=== PATIENT | female | born 2000 | race Caucasian/White ===

== ENCOUNTER 2023-03-14 19:50 | Emergency (ER) | payer OTHER ==
[2023-03-14 20:01] VITALS: BP 105/62; PULSE 57; RESP 18; TEMP 98; BMI 22.6
[2023-03-14 20:37] LABS: HCG,QUALITATIVE URINE Positive
[2023-03-14 20:39] LABS: PH,URINE 5.5 (5.0-8.0); URINE APPEARANCE CLEAR; URINE BILIRUBIN NEGATIVE (NEGATIVE); URINE COLOR YELLOW; URINE GLUCOSE (UA) NEGATIVE (NEGATIVE); URINE KETONE NEGATIVE (NEGATIVE); URINE LEUK ESTERASE NEGATIVE (NEGATIVE); URINE NITRITE NEGATIVE (NEGATIVE); URINE PROTEIN NEGATIVE (NEGATIVE); URINE UROBILINOGEN 0.2 mg/dL (0.2-1.0)
[2023-03-14] MEDS ORDERED: SODIUM CHLORIDE 0.9% 1000 ML INFUS.BAG IV ONE (21:07)
[2023-03-14] MEDS ORDERED: ONDANSETRON *ODT* 4 MG TABLET SL ONE (21:07)
[2023-03-14] MEDS ORDERED: ONDANSETRON 8 MG TABLET (FP) PO ONE (21:21)
[2023-03-14 21:32] LABS: BASO % 0.4 % (0-2.0); EOS % 1.9 % (0-4.5); HEMATOCRIT 37.3 % (32.4-45.2); HEMOGLOBIN 12.7 GM/dL (10.7-15.3); LYMPH % 24.6 % (8-40); MCHC 33.9 g/dl (32.0-36.0); MEAN CELL VOLUME 82.7 fl (80-96); MEAN PLT VOLUME 8.8 fl (7.5-11.1); MONO % 4.6 % (3.8-10.2); NEUT % 68.5 % (42.8-82.8); PLATELET COUNT 228 10^3/uL (134-434); RBC 4.51 M/mm3 (3.60-5.2); RDW 14.9 % (11.6-15.6); WHITE BLOOD COUNT 9.7 K/mm3 (4.0-10.0)
[2023-03-14 22:33] LABS: TOT PROT 6.8 g/dl (6.4-8.2)
[2023-03-14 22:35] LABS: ALBUMIN 3.5 g/dl (3.4-5.0); BLOOD UREA NITROGEN 9.9 mg/dL (7-18); CALCIUM 8.4 mg/dL (8.5-10.1)
[2023-03-14 22:38] LABS: CREATININE 0.5 mg/dL (0.55-1.3)
[2023-03-14 22:39] LABS: BILIRUBIN,TOTAL 0.2 mg/dL (0.2-1)
== END 2023-03-15 00:10 | disposition home or self-care (01) ==
LOC: JER 19:50
DX: O21.0 Mild hyperemesis gravidarum (principal); Z3A.00 Weeks of gestation of pregnancy not specified
CPT/HCPCS: 36415; 76801-TC; 80053; 81003; 84702; 84703; 85025; 87086; 99284-25; Q0162

== ENCOUNTER 2023-03-27 05:05 | Observation (INO) | payer OTHER ==
[2023-03-27 05:14] VITALS: BMI 24.9
[2023-03-27] MEDS ORDERED: CEFTRIAXONE 1,000 MG in DEXTROSE 5%-WATER - 50 ML IVPB ONE (05:49)
[2023-03-27] MEDS ORDERED: CEFTRIAXONE 1 GM/50 ML BAG ONE (05:56)
[2023-03-27 06:39] LABS: BASO % 0.4 % (0-2.0); EOS % 1.4 % (0-4.5); HEMATOCRIT 37.8 % (32.4-45.2); HEMOGLOBIN 12.9 GM/dL (10.7-15.3); MCH 28.2 pg (25.7-33.7); MCHC 34.1 g/dl (32.0-36.0); MEAN CELL VOLUME 82.8 fl (80-96); MEAN PLT VOLUME 9.2 fl (7.5-11.1); MONO % 4.8 % (3.8-10.2); NEUT % 73.4 % (42.8-82.8); PLATELET COUNT 225 10^3/uL (134-434); RBC 4.57 M/mm3 (3.60-5.2); RDW 14.2 % (11.6-15.6); WHITE BLOOD COUNT 9.2 K/mm3 (4.0-10.0)
[2023-03-27 06:40] LABS: EPI CELLS >36 /uL (0-25.1); HYALINE CASTS 0 /uL (0-3.1); URINE APPEARANCE CLEAR; URINE BACTERIA 583 /uL (0-1359); URINE BILIRUBIN NEGATIVE (NEGATIVE); URINE COLOR YELLOW; URINE GLUCOSE (UA) NEGATIVE (NEGATIVE); URINE KETONE NEGATIVE (NEGATIVE); URINE LEUK ESTERASE 1+ (NEGATIVE); URINE NITRITE NEGATIVE (NEGATIVE); URINE PROTEIN NEGATIVE (NEGATIVE); URINE RBC 7 /uL (0-23.9); URINE UROBILINOGEN 0.2 mg/dL (0.2-1.0); URINE WBC 23 /uL (0-25.8)
[2023-03-27 06:45] LABS: INR 1.09 (0.83-1.09); PROTHROMBIN TIME (PATIENT) 12.6 SEC (9.7-13.0)
[2023-03-27 06:51] LABS: POTASSIUM 3.8 mmol/L (3.5-5.1)
[2023-03-27 06:53] LABS: CALCIUM 8.4 mg/dL (8.5-10.1)
[2023-03-27 06:54] LABS: ALBUMIN 3.8 g/dl (3.4-5.0); BLOOD UREA NITROGEN 8.1 mg/dL (7-18)
[2023-03-27 06:57] LABS: CREATININE 0.4 mg/dL (0.55-1.3)
[2023-03-27 06:58] LABS: TOT PROT 7.3 g/dl (6.4-8.2)
[2023-03-27 06:59] LABS: BILIRUBIN,TOTAL 0.3 mg/dL (0.2-1)
[2023-03-27] MEDS ORDERED: ACETAMINOPHEN 325 MG TABLET (FP) PO PRN (16:38)
[2023-03-27] MEDS ORDERED: ONDANSETRON 4 MG/2 ML VIAL IVPUSH PRN (22:16)
[2023-03-27] MEDS ORDERED: SODIUM CHLORIDE 1,000 ML IV SCH (22:30)
[2023-03-28 01:29] VITALS: RESP 18
[2023-03-28 08:09] LABS: BASO % 0.4 % (0-2.0); EOS % 2.3 % (0-4.5); HEMATOCRIT 34.8 % (32.4-45.2); HEMOGLOBIN 11.6 GM/dL (10.7-15.3); LYMPH % 25.3 % (8-40); MCH 28.1 pg (25.7-33.7); MCHC 33.4 g/dl (32.0-36.0); MEAN PLT VOLUME 9.3 fl (7.5-11.1); MONO % 4.9 % (3.8-10.2); NEUT % 67.1 % (42.8-82.8); PLATELET COUNT 200 10^3/uL (134-434); RBC 4.14 M/mm3 (3.60-5.2); RDW 14.8 % (11.6-15.6); WHITE BLOOD COUNT 7.7 K/mm3 (4.0-10.0)
[2023-03-28 08:28] LABS: BLOOD UREA NITROGEN 6.5 mg/dL (7-18); CALCIUM 7.9 mg/dL (8.5-10.1)
[2023-03-28 08:31] LABS: CREATININE 0.4 mg/dL (0.55-1.3)
[2023-03-28 08:32] LABS: BILIRUBIN,TOTAL 0.8 mg/dL (0.2-1)
[2023-03-28] MEDS ORDERED: CEFTRIAXONE 1 GM/50 ML BAG ONE (08:51)
[2023-03-28 09:44] VITALS: BP 101/53; PULSE 56; TEMP 98.9
[2023-03-28] MEDS ORDERED: CEFTRIAXONE 1 GM in DEXTROSE 5%-WATER - 50 ML IVPB SCH (10:00)
== END 2023-03-28 10:09 | disposition home or self-care (01) ==
LOC: JER 05:05 → JERBED 12:04
PROVIDERS: ADMIT Internal Medicine; ATTEND Internal Medicine
PROC: 3E03329 Introduction of Other Anti-infective into Peripheral Vein, Percutaneous Approach (ICD-10-PCS; principal; 2023-03-27)
PROC: 3E0337Z Introduction of Electrolytic and Water Balance Substance into Peripheral Vein, Percutaneous Approach (ICD-10-PCS; 2023-03-27)
PROC: 3E033GC Introduction of Other Therapeutic Substance into Peripheral Vein, Percutaneous Approach (ICD-10-PCS; 2023-03-27)
DX: O23.41 Unspecified infection of urinary tract in pregnancy, first trimester (principal); N12 Tubulo-interstitial nephritis, not specified as acute or chronic; Z3A.10 10 weeks gestation of pregnancy
CPT/HCPCS: 36415; 76817-TC; 80053; 81003; 83605; 84702; 85025; 85610; 86850; 86900; 86901; 87040; 87086; 96361; 96365; 96366; 96375; 99285-25; G0378

== ENCOUNTER 2023-04-07 02:46 | Emergency (ER) | payer OTHER ==
[2023-04-07 02:59] VITALS: BMI 28.7
[2023-04-07] MEDS ORDERED: LACTATED RINGERS SOLUTION 1000 ML INFUS.BAG IV ONE (03:52)
[2023-04-07] MEDS ORDERED: ONDANSETRON 4 MG/2 ML VIAL IVPUSH ONE (03:52)
[2023-04-07] MEDS ORDERED: FAMOTIDINE 20 MG/50 ML IVPB 20 MG/50 ML MG IVPB ONE ×2 (03:57→04:06)
[2023-04-07] MEDS ORDERED: ONDANSETRON 4 MG/2 ML VIAL ONE (04:06)
[2023-04-07 04:43] LABS: BASO % 0.3 % (0-2.0); EOS % 1.2 % (0-4.5); HEMATOCRIT 35.5 % (32.4-45.2); HEMOGLOBIN 12.7 GM/dL (10.7-15.3); LYMPH % 18.4 % (8-40); MCH 29.1 pg (25.7-33.7); MCHC 35.6 g/dl (32.0-36.0); MEAN CELL VOLUME 81.8 fl (80-96); MEAN PLT VOLUME 8.8 fl (7.5-11.1); MONO % 5.8 % (3.8-10.2); NEUT % 74.3 % (42.8-82.8); PH,URINE 6.5 (5.0-8.0); PLATELET COUNT 215 10^3/uL (134-434); RBC 4.35 M/mm3 (3.60-5.2); RDW 14.5 % (11.6-15.6); URINE APPEARANCE CLEAR; URINE BILIRUBIN NEGATIVE (NEGATIVE); URINE COLOR YELLOW; URINE GLUCOSE (UA) NEGATIVE (NEGATIVE); URINE KETONE NEGATIVE (NEGATIVE); URINE LEUK ESTERASE NEGATIVE (NEGATIVE); URINE NITRITE NEGATIVE (NEGATIVE); URINE PROTEIN NEGATIVE (NEGATIVE); URINE UROBILINOGEN 0.2 mg/dL (0.2-1.0); WHITE BLOOD COUNT 9.6 K/mm3 (4.0-10.0)
[2023-04-07 05:07] LABS: POTASSIUM 3.8 mmol/L (3.5-5.1)
[2023-04-07 05:08] LABS: ALBUMIN 3.6 g/dl (3.4-5.0); BLOOD UREA NITROGEN 11.7 mg/dL (7-18)
[2023-04-07 05:09] LABS: MAGNESIUM 1.8 mg/dL (1.8-2.4)
[2023-04-07 05:13] LABS: CREATININE 0.5 mg/dL (0.55-1.3)
[2023-04-07 05:14] LABS: BILIRUBIN,TOTAL 0.5 mg/dL (0.2-1); TOT PROT 6.8 g/dl (6.4-8.2)
[2023-04-07 07:07] LABS: THROAT:GRP A STREP NOT DETECTED (NOTDETECTED)
[2023-04-07 07:33] VITALS: TEMP 98.3
[2023-04-07 08:02] VITALS: BP 100/40; PULSE 53; RESP 18
== END 2023-04-07 08:59 | disposition home or self-care (01) ==
LOC: JER 02:46
PROC: 3E033GC Introduction of Other Therapeutic Substance into Peripheral Vein, Percutaneous Approach (ICD-10-PCS; principal; 2023-04-07)
PROC: 3E033GC Introduction of Other Therapeutic Substance into Peripheral Vein, Percutaneous Approach (ICD-10-PCS; 2023-04-07)
DX: O21.9 Vomiting of pregnancy, unspecified (principal); Z3A.12 12 weeks gestation of pregnancy
CPT/HCPCS: 0241U-QW; 36415; 80053; 81003; 83690; 83735; 84702; 85025; 87086; 87651

== ENCOUNTER 2023-10-15 15:05 | Inpatient (IN) | payer OTHER ==
[2023-10-15] MEDS: DEXTROSE 5%-LACTATED RINGERS 1,000 ML IV SCH (16:30)
[2023-10-15 16:52] VITALS: BMI 31.6
[2023-10-15 17:10] LABS: BASO % 0.5 % (0-2.0); EOS % 0.5 % (0-4.5); HEMATOCRIT 33.6 % (32.4-45.2); HEMOGLOBIN 10.9 GM/dL (10.7-15.3); LYMPH % 13.9 % (8-40); MCH 24.5 pg (25.7-33.7); MCHC 32.5 g/dl (32.0-36.0); MEAN CELL VOLUME 75.4 fl (80-96); MEAN PLT VOLUME 10.2 fl (7.5-11.1); MONO % 3.9 % (3.8-10.2); NEUT % 81.2 % (42.8-82.8); PLATELET COUNT 173 10^3/uL (134-434); RBC 4.46 M/mm3 (3.60-5.2); RDW 17.1 % (11.6-15.6)
[2023-10-15 17:18] LABS: INR 0.94 (0.83-1.09); PROTHROMBIN TIME (PATIENT) 10.9 SEC (9.7-13.0)
[2023-10-15 17:21] LABS: ACTIVATED PTT 25.6 SECONDS (25.2-36.5)
[2023-10-15 17:32] LABS: POTASSIUM 3.7 mmol/L (3.5-5.1)
[2023-10-15 17:33] LABS: CALCIUM 8.4 mg/dL (8.5-10.1)
[2023-10-15 17:34] LABS: BLOOD UREA NITROGEN 9.7 mg/dL (7-18)
[2023-10-15 17:37] LABS: CREATININE 0.5 mg/dL (0.55-1.3)
[2023-10-15] MEDS ORDERED: FENTANYL/BUPIVACAINE/NS/PF - PCEA - 50 ML DISP.SYRIN EP ONE (21:40)
[2023-10-15] MEDS ORDERED: FENTANYL CITRATE/PF 50 MCG/ML VIAL ONE (21:45)
[2023-10-15] MEDS: ELECTROLYTE-148 SOLN 1,000 ML IV SCH (22:00)
[2023-10-15] MEDS: FENTANYL/BUPIVACAINE/NS/PF - PCEA - 50 ML DISP.SYRIN EP SCH (22:05)
[2023-10-15] MEDS ORDERED: NALOXONE HCL 0.4 MG/ML VIAL IVPUSH PRN (22:18)
[2023-10-16] MEDS ORDERED: FENTANYL/BUPIVACAINE/NS/PF - PCEA - 50 ML DISP.SYRIN EP ONE ×3 (01:25→06:56)
[2023-10-16] MEDS ORDERED: FENTANYL CITRATE/PF 50 MCG/ML VIAL ONE ×2 (02:41→06:07)
[2023-10-16] MEDS ORDERED: BUPIVACAINE HCL/PF 0.25% (2.5MG/ML) 10 ML VIAL ONE (06:07)
[2023-10-16] MEDS ORDERED: OXYTOCIN 20 UNITS in 0.9% NS 20 UNIT/1,000 ML INFUS.BAG IV ONE (07:00)
[2023-10-16] MEDS ORDERED: LIDOCAINE HCL 1% PRESERVATIVE FREE - 30ML VIAL ONE (07:00)
[2023-10-16] MEDS ORDERED: OXYTOCIN 30 UNITS in 0.9% NS 30 UNIT/500 ML INFUS.BAG IVPB ONE (08:01)
[2023-10-16] MEDS: OXYTOCIN 30 UNITS in 0.9% NS 30 UNIT/500 ML INFUS.BAG IVPB SCH (08:15)
[2023-10-16] MEDS ORDERED: METHYLERGONOVINE MALEATE 0.2 MG/1 ML AMP IM PRN (09:29)
[2023-10-16] MEDS ORDERED: BISACODYL 10 MG SUPP.RECT RC PRN (09:29)
[2023-10-16] MEDS ORDERED: BENZOCAINE 28 GM HEMORRHOIDAL OINTMENT TP PRN (09:29)
[2023-10-16] MEDS ORDERED: oxyCODONE HCL 5 MG TABLET PO PRN (09:29)
[2023-10-16] MEDS: ACETAMINOPHEN 325 MG TABLET (FP) PO PRN (09:30)
[2023-10-16] MEDS: OXYTOCIN 20 UNITS in 0.9% NS 20 UNIT/1,000 ML INFUS.BAG IV SCH (09:30)
[2023-10-16 09:52] LABS: CORD BASE EXCESS -9.9 mmol/L (0-2); CORD HCO3 17.2 mmHg (20-29); CORD HCO3 18.1 mmHg (20-29); CORD PCO2 42.1 mmHg (30-78); CORD PCO2 47.7 mmHg (30-78); CORD pH 7.197 (7.14-7.44); CORD pH 7.23 (7.14-7.44)
[2023-10-16] MEDS: IBUPROFEN 600 MG TABLET (FP) PO PRN (17:45)
[2023-10-17 07:05] LABS: BASO % 0.2 % (0-2.0); EOS % 1.2 % (0-4.5); HEMATOCRIT 24.3 % (32.4-45.2); HEMOGLOBIN 7.9 GM/dL (10.7-15.3); MCH 24.4 pg (25.7-33.7); MCHC 32.5 g/dl (32.0-36.0); MEAN PLT VOLUME 9.6 fl (7.5-11.1); MONO % 4.7 % (3.8-10.2); NEUT % 81.9 % (42.8-82.8); PLATELET COUNT 130 10^3/uL (134-434); RBC 3.24 M/mm3 (3.60-5.2); RDW 17.4 % (11.6-15.6); WHITE BLOOD COUNT 14.5 K/mm3 (4.0-10.0)
[2023-10-17 08:52] VITALS: RESP 18
[2023-10-17] MEDS: DIPHTH,PERTUSS(ACELL),TET 0.5 ML DISP.SYRIN IM ONE (10:44)
[2023-10-17] MEDS: FLU VACCINE (FLULAVAL) PF 60 MCG/0.5 ML SYRINGE 2023-2024 IM ONE (10:44)
[2023-10-17] MEDS: FERROUS SO4 325 MG TABLET (FP) PO SCH (10:45)
[2023-10-17] MEDS: WITCH HAZEL 50% (TUCKS) 40 PAD/JAR PAD TP PRN (20:21)
[2023-10-17] MEDS: BENZOCAINE 20% 57 GM BOTTLE TP PRN (20:21)
[2023-10-17] MEDS: SENNOSIDES/DOCUSATE COMBO (SENNA PLUS) TABLET (UD) PO PRN (21:15)
[2023-10-18 09:23] VITALS: BP 113/69; PULSE 85; TEMP 97.4
== END 2023-10-18 11:10 | disposition home or self-care (01) | DRG 560 ==
LOC: JDEL 15:05 → JLDR 15:40 → J3W 10-16 11:23
PROVIDERS: ADMIT Obstetrics & Gynecology; ATTEND Obstetrics & Gynecology
PROC: 10E0XZZ Delivery of Products of Conception, External Approach (ICD-10-PCS; principal; 2023-10-16)
PROC: 0HQ9XZZ Repair Perineum Skin, External Approach (ICD-10-PCS; 2023-10-16)
DX: O70.0 First degree perineal laceration during delivery (principal); Z3A.39 39 weeks gestation of pregnancy; Z37.0 Single live birth
CPT/HCPCS: 36415; 36600; 80048; 82803; 85025; 85610; 85730; 86780; 86850; 86900; 86901; 90686; 90715; G0008

== ENCOUNTER 2023-11-04 19:36 | Emergency (ER) | payer OTHER ==
[2023-11-04 19:45] VITALS: BP 105/61; PULSE 96; RESP 18; TEMP 98.2; BMI 27.4
== END 2023-11-04 21:08 | disposition home or self-care (01) ==
LOC: JERFT 19:36
DX: N61.0 Mastitis without abscess (principal); N64.4 Mastodynia; R68.83 Chills (without fever)
CPT/HCPCS: 99283-25

== ENCOUNTER 2024-02-03 18:44 | Emergency (ER) | payer OTHER ==
[2024-02-03 18:51] VITALS: BP 108/68; PULSE 57; RESP 18; TEMP 98.2; BMI 28.3
[2024-02-03 20:35] LABS: BASO % 0.6 % (0-2.0); EOS % 1.4 % (0-4.5); HEMATOCRIT 31.7 % (32.4-45.2); HEMOGLOBIN 10.4 GM/dL (10.7-15.3); LYMPH % 28.9 % (8-40); MCH 22.2 pg (25.7-33.7); MCHC 32.7 g/dl (32.0-36.0); MEAN PLT VOLUME 8.8 fl (7.5-11.1); MONO % 4.6 % (3.8-10.2); NEUT % 64.5 % (42.8-82.8); PLATELET COUNT 249 10^3/uL (134-434); RBC 4.66 M/mm3 (3.60-5.2); RDW 16.7 % (11.6-15.6)
[2024-02-03] MEDS ORDERED: FAMOTIDINE 20 MG/50 ML IVPB 20 MG/50 ML MG IVPB ONE (20:35)
[2024-02-03] MEDS ORDERED: ONDANSETRON 4 MG/2 ML VIAL ONE (20:35)
[2024-02-03] MEDS ORDERED: ACETAMINOPHEN INJECTION 100 ML IVPB ONE (20:35)
[2024-02-03] MEDS: ACETAMINOPHEN 1000 MG/100 ML BAG IVPB ONE (20:43)
[2024-02-03] MEDS: ONDANSETRON 4 MG/2 ML VIAL IVPUSH ONE (20:43)
[2024-02-03] MEDS: SODIUM CHLORIDE 1,000 ML IV STA (20:43)
[2024-02-03] MEDS: FAMOTIDINE 20 MG/50 ML IVPB 20 MG/50 ML MG IVPB ONE (20:43)
[2024-02-03 20:52] LABS: POTASSIUM 3.5 mmol/L (3.5-5.1)
[2024-02-03 20:55] LABS: ALBUMIN 3.9 g/dl (3.4-5.0); BLOOD UREA NITROGEN 10.6 mg/dL (7-18); CALCIUM 9.3 mg/dL (8.5-10.1)
[2024-02-03 20:58] LABS: CREATININE 0.5 mg/dL (0.55-1.3)
[2024-02-03 21:00] LABS: BILIRUBIN,TOTAL 0.3 mg/dL (0.2-1); TOT PROT 7.6 g/dl (6.4-8.2)
== END 2024-02-03 22:21 | disposition home or self-care (01) ==
LOC: JER 18:44
PROC: 3E033GC Introduction of Other Therapeutic Substance into Peripheral Vein, Percutaneous Approach (ICD-10-PCS; principal; 2024-02-03)
PROC: 3E033NZ Introduction of Analgesics, Hypnotics, Sedatives into Peripheral Vein, Percutaneous Approach (ICD-10-PCS; 2024-02-03)
PROC: 3E033GC Introduction of Other Therapeutic Substance into Peripheral Vein, Percutaneous Approach (ICD-10-PCS; 2024-02-03)
DX: K29.70 Gastritis, unspecified, without bleeding (principal); R10.11 Right upper quadrant pain; R10.12 Left upper quadrant pain; R10.13 Epigastric pain; R11.2 Nausea with vomiting, unspecified
CPT/HCPCS: 36415; 76705-TC; 80053; 83690; 85025; 99284-25; J0131